=== PATIENT | female | born 1995 | race Caucasian/White ===

== ENCOUNTER 2016-10-01 08:47 | Inpatient (IN) | payer MEDICAID ==
[2016-10-01] MEDS ORDERED: ePHEDrine SULFATE IV PRN ×2 (10:23→11:21)
[2016-10-01] MEDS ORDERED: SUBLIMAZE IV PRN (10:23)
[2016-10-01] MEDS ORDERED: XYLOCAINE 2% INFILTRATI ONE (10:23)
[2016-10-01] MEDS ORDERED: BRETHINE IVP PRN (10:23)
[2016-10-01] MEDS ORDERED: ZOFRAN IV PRN (10:23)
[2016-10-01] MEDS ORDERED: BRETHINE SUB-Q PRN (10:23)
[2016-10-01] MEDS ORDERED: MINERAL OIL PO PRN (10:23)
--- NOTE | 2016-10-01 10:30 | History and Physical Report ---
History of Present Illness Date of examination: 10/01/16 (pt presents in active labor) Chief complaint: contractions History of present illness: EDC Confirmation: 09/28/2016 Gestational Age: 16 1/7 weeks Past History : 3 Term Births: 1 Premature Births: 0 Living Children: 1 Para: 1 Mult. Births: 0 Prev : 0 Prev. attempt? 0 Aborta: 1 Elect. Ab: 0 Spont. 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 of genital herpes: no Genetic History Congenital Heart Defect: Mom: no Dad: no Jyoti Disease: Mom: no Dad: no Thalassemia Mom: no Dad: no Neural Tube Defect Mom: no Dad: no Down's Syndrome Mom: no Dad: no Richard-Sachs Mom: no Dad: no Sickle Cell Disease/Trait Mom: no Dad: no Hemophilia Mom: no Dad: no Muscular Dystrophy Mom: no Dad: no Cystic Fibrosis Mom: no Dad: no [place] Chorea Mom: no Dad: no Mental Retardation Mom: no Dad: no Fragile X Mom: no Dad: no Other Genetic/Chromosomal Disorder Mom: no Dad: no Child w/other defect Mom: no Dad: no Enviromental Exposures Xray Exposure: no Medication, drug, or alcohol use since LMP: no Chemical/Other Exposure: no Exposure to Cat Liter: no Hx of Parvovirus (Fifth Disease): no Active Medications (reviewed today): None Current Allergies: No known allergies Laboratory Results Routine Urinalysis Protein: Negative Glucose: Negative Urine HCG: positive Review of Systems General Complains of fatigue. Denies fever, chills, sweats, anorexia, weakness, malaise, weight loss and sleep disorder. Complains of pelvic pain. Denies vaginal discharge, incontinence, dysuria, hematuria, urinary frequency, amenorrhea, menorrhagia, abnormal vaginal bleeding, genital sores, decreased libido, painful periods, painful sex, urinary urgency, hot flashes, vaginal dryness, vaginal itching and vaginal odor. CV Denies chest pains, palpitations, syncope, dyspnea on exertion, orthopnea, PND and peripheral edema. Resp Denies cough, dyspnea at rest, excessive sputum, hemoptysis, wheezing and pleurisy. GI Complains of nausea. Denies vomiting, diarrhea, constipation, change in bowel habits, abdominal pain, melena, hematochezia, jaundice, gas/bloating, indigestion/heartburn, dysphagia and odynophagia. Breast Complains of breast pain. Denies left breast lump, right breast lump, nipple discharge, bloody discharge from nipple, abnormal mammogram and breast enlargement. Psych Denies depression, anxiety, irritability and mood swings. PHYSICAL EXAM HEENT: normocephalic, no lesions or deformities Neck/Thyroid: supple, thyroid normal Skin no significant abnormal lesions or rashes Chest: respiratory effort normal, clear to auscultation Breasts: skin/areolae normal, no masses, no nipple discharge, no erythema/warmth /tenderness, and axillae normal. CV: regular, normal S1-S2, no murmur, no rub, no gallop Abdomen: Obese, normal bowel sounds, soft, nontender, no HSM Musculoskeletal: grossly normal ROM in joints, no joint tenderness or muscle weakness Neuro: no gross anomalities Extremities: no clubbing, cyanosis, or edema CHUTE BOSS Exams Vulva/Vagina: No lesions, normal BUS, normal rugae Cervix: No lesions; no cervical motion tenderness Uterus: Enlarged 16- 18 week size Adnexae: Unable to palpate due to uterine size Rectovaginal: exam defered Past History - Obstetrical History Expected Date of Delivery: 09/28/16 Actual Gestation: 40 Week(s) 3 Day(s) : 3 Para: 1 Hx # Term Pregnancies: 1 Spontaneous Abortions: 1 (D&C done) Number of Living Children: 1 Medications and Allergies Allergies Allergy/AdvReac Type Severity Reaction Status Date / Time No Known Allergies Allergy Unverified 01/15/14 23:42 Home Medications Medication Instructions Recorded Confirmed Last Taken Type No Known Home Medications [No 01/15/14 01/15/14 Unknown History Reported Home Medications] - Vital Signs Vital signs: Vital Signs Pulse BP 76 116/81 10/01/16 09:34 10/01/16 09:34 Temp Pulse Resp BP Pulse Ox 72 116/81 98 10/01/16 09:57 10/01/16 09:34 10/01/16 09:57 - Physical Exam Breasts: Positive: deferred Cardiovascular: Regular rate, Normal S1, Normal S2 Lungs: Positive: Normal air movement Abdomen: Positive: normal appearance, soft, normal bowel sounds. Negative: distention, tenderness Genitourinary (Female): Positive: normal external genitalia, normal perenium Vulva: both: normal Vagina: Positive: normal moisture. Negative: discharge Cervix: Negative: lesion, discharge Uterus: Positive: normal size, normal contour Adnexa: both: normal Anus/Rectum: Positive: normal perianal skin, heme negative. Negative: rectal mass, hemorrhoids Extremities: Positive: edema Deep Tendon Reflex Grade: Normal +2 - Obstetrical FHR: category 1 Uterine Contraction Monitor Mode: External Cervical Dilatation: 5 Cervical Effacement Percentage: 100 station: -1 Uterine Contraction Pattern: Irregular Uterine Contraction Intensity: Moderate Results All other labs normal. Laboratory Data-Patient Name: ISIDRO Davis SAMIA Test Date Result Blood Type 03/20/2016 A Rh 03/20/2016 positive Antibody Screen negative Rubella 03/20/2016 IMMUNE Serology (RPR) 08/25/2016 NR HBsAg 03/20/2016 negative Hemoglobin 06/16/2016 10.6 Hematocrit 06/16/2016 32.6 Platelets 03/20/2016 320 Chlamydia DNA 04/14/2016 Negative GC DNA/Culture 04/14/2016 Urine Culture Group B Strep cult negative PAP 03/20/2016 normal HIV 08/25/2016 AFP/Quad Screen Glucola Test 3hr GTT (Fasting) 1 hr 2 hr 3 hr [facility]-Patient Name:ISIDRO Davis SAMIA Test Date Result Varicella Ab Sickle Cell 03/20/2016 negative PPD Fibronectin Cystic Fibrosis Parvovirus TSH Free T4 Hepatitis C ALT AST Uric Acid Creatinine 24 hr Urine Protein IZABEL Assessment and Plan 21yo @ 40 weeks in active labor GBS negative Orders in EMR.
[2016-10-01] MEDS: LACTATED RINGERS 1,000 ML IV SCH ×2 (10:44→11:32)
[2016-10-01 10:51] LABS: Hematocrit 32.3 % (30.3-42.9); Hemoglobin 10.6 gm/dl (10.1-14.3); Mean Corpuscular HGB Conc 33 % (30-34); Mean Corpuscular Hemoglobin 26 pg (28-32); Mean Corpuscular Volume 79 fl (79-97); Platelet Count 261 K/mm3 (140-440); Red Blood Count 4.08 M/mm3 (3.65-5.03); White Blood Count 10.6 K/mm3 (4.5-11.0)
[2016-10-01] MEDS ORDERED: PITOCin/NS 30 UNIT/500ML 30 UNITS/500 ML BAG IV SCH (11:00)
[2016-10-01] MEDS ORDERED: PITOCin 20 UNIT in NACL 0.9% 1000 ML 998 ML IV SCH ×2 (11:00→15:00)
--- NOTE | 2016-10-01 11:20 | Anesthesia Consultation ---
Anesthesia Consult and Med Hx Date of service: 10/01/16 - Airway Anesthetic Teeth Evaluation: Good ROM Head & Neck: Adequate Mental/Hyoid Distance: Adequate - Pre-Operative Health Status ASA Pre-Surgery Classification: ASA2 Proposed Anesthetic Plan: Epidural, Spinal
[2016-10-01] MEDS ORDERED: NARCAN 2 MG/2 ML IV PRN (11:21)
--- NOTE | 2016-10-01 11:43 | Progress Note ---
Assessment and Plan Internals placed SVE 7,100,-1 Pt sitting up for epidural Anticipate delivery Subjective - Subjective Date of service: 10/01/16 (pt req epidural) Interval history: EDC Confirmation: 09/28/2016 Gestational Age: 16 1/7 weeks Past History : 3 Term Births: 1 Premature Births: 0 Living Children: 1 Para: 1 Mult. Births: 0 Prev : 0 Prev. attempt? 0 Aborta: 1 Elect. Ab: 0 Spont. 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 of genital herpes: no Genetic History Congenital Heart Defect: Mom: no Dad: no Jyoti Disease: Mom: no Dad: no Thalassemia Mom: no Dad: no Neural Tube Defect Mom: no Dad: no Down's Syndrome Mom: no Dad: no Richard-Sachs Mom: no Dad: no Sickle Cell Disease/Trait Mom: no Dad: no Hemophilia Mom: no Dad: no Muscular Dystrophy Mom: no Dad: no Cystic Fibrosis Mom: no Dad: no [place] Chorea Mom: no Dad: no Mental Retardation Mom: no Dad: no Fragile X Mom: no Dad: no Other Genetic/Chromosomal Disorder Mom: no Dad: no Child w/other defect Mom: no Dad: no Enviromental Exposures Xray Exposure: no Medication, drug, or alcohol use since LMP: no Chemical/Other Exposure: no Exposure to Cat Liter: no Hx of Parvovirus (Fifth Disease): no Active Medications (reviewed today): None Current Allergies: No known allergies Laboratory Results Routine Urinalysis Protein: Negative Glucose: Negative Urine HCG: positive Review of Systems General Complains of fatigue. Denies fever, chills, sweats, anorexia, weakness, malaise, weight loss and sleep disorder. Complains of pelvic pain. Denies vaginal discharge, incontinence, dysuria, hematuria, urinary frequency, amenorrhea, menorrhagia, abnormal vaginal bleeding, genital sores, decreased libido, painful periods, painful sex, urinary urgency, hot flashes, vaginal dryness, vaginal itching and vaginal odor. CV Denies chest pains, palpitations, syncope, dyspnea on exertion, orthopnea, PND and peripheral edema. Resp Denies cough, dyspnea at rest, excessive sputum, hemoptysis, wheezing and pleurisy. GI Complains of nausea. Denies vomiting, diarrhea, constipation, change in bowel habits, abdominal pain, melena, hematochezia, jaundice, gas/bloating, indigestion/heartburn, dysphagia and odynophagia. Breast Complains of breast pain. Denies left breast lump, right breast lump, nipple discharge, bloody discharge from nipple, abnormal mammogram and breast enlargement. Psych Denies depression, anxiety, irritability and mood swings. PHYSICAL EXAM HEENT: normocephalic, no lesions or deformities Neck/Thyroid: supple, thyroid normal Skin no significant abnormal lesions or rashes Chest: respiratory effort normal, clear to auscultation Breasts: skin/areolae normal, no masses, no nipple discharge, no erythema/warmth /tenderness, and axillae normal. 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 Vulva/Vagina: No lesions, normal BUS, normal rugae Cervix: No lesions; no cervical motion tenderness Uterus: Enlarged 16- 18 week size Adnexae: Unable to palpate due to uterine size Rectovaginal: exam defered Patient reports: movement normal Objective - Vital Signs Vital Signs: Vital Signs - 12hr 10/01/16 10/01/16 10/01/16 09:34 09:37 09:42 Pulse Rate 76 73 87 Blood Pressure 116/81 O2 Sat by Pulse 97 97 Oximetry 10/01/16 10/01/16 10/01/16 09:47 09:52 09:57 Pulse Rate 85 77 72 Blood Pressure O2 Sat by Pulse 97 97 98 Oximetry 10/01/16 10/01/16 10/01/16 10:25 10:30 10:35 Pulse Rate 79 74 76 Blood Pressure O2 Sat by Pulse 96 97 96 Oximetry 10/01/16 10/01/16 10/01/16 10:40 10:45 10:50 Pulse Rate 83 87 88 Blood Pressure O2 Sat by Pulse 95 96 96 Oximetry 10/01/16 10/01/16 10/01/16 10:55 11:00 11:05 Pulse Rate 72 80 74 Blood Pressure O2 Sat by Pulse 97 97 98 Oximetry 10/01/16 10/01/16 10/01/16 11:10 11:15 11:20 Pulse Rate 77 86 91 H Blood Pressure O2 Sat by Pulse 98 98 97 Oximetry 10/01/16 10/01/16 11:25 11:30 Pulse Rate 77 80 Blood Pressure O2 Sat by Pulse 96 96 Oximetry - Exam Breasts: deferred Cardiovascular: Regular rate Lungs: Normal air movement Abdomen: Present: normal appearance, soft. Absent: distention, tenderness Uterus: Present: normal FHR: auscultation normal, category 1 Uterine Contraction Monitor Mode: Internal Cervical Dilatation: 7 (ISE/IUPC placed) Cervical Effacement Percentage: 100 station: -1 Uterine Contraction Pattern: Regular Uterine Contraction Intensity: Moderate Extremities: edema Deep Tendon Reflex Grade: Normal +2 - Labs Labs: Abnormal Labs 10/01/16 10:15 MCH 26 L Laboratory Results - last 24 hr 10/01/16 10/01/16 10:15 10:15 WBC 10.6 RBC 4.08 Hgb 10.6 Hct 32.3 MCV 79 MCH 26 L MCHC 33 RDW 15.0 Plt Count 261 Blood Type A POSITIVE Antibody Screen Negative
[2016-10-01] MEDS ORDERED: PITOCin/NS 20 UNIT/1000ML DRIP 20,000 MILLIUNITS/1,000 ML BAG IV ONE (11:56)
[2016-10-01] MEDS ORDERED: fentaNYL-BUPIV 2 MCG/ML-0.125% 200 MCG/100 ML BAG EPIDURAL SCH (12:00)
--- NOTE | 2016-10-01 12:57 | Progress Note ---
Assessment and Plan OP presentation Pt left lateral with leg in stirrup Will do freq position changes. Pit @ 8mu Re-eval as needed. EFW 8 pounds Subjective - Subjective Date of service: 10/01/16 (epidural redose called for) Interval history: EDC Confirmation: 09/28/2016 Gestational Age: 16 1/7 weeks Past History : 3 Term Births: 1 Premature Births: 0 Living Children: 1 Para: 1 Mult. Births: 0 Prev : 0 Prev. attempt? 0 Aborta: 1 Elect. Ab: 0 Spont. 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 of genital herpes: no Genetic History Congenital Heart Defect: Mom: no Dad: no Jyoti Disease: Mom: no Dad: no Thalassemia Mom: no Dad: no Neural Tube Defect Mom: no Dad: no Down's Syndrome Mom: no Dad: no Richard-Sachs Mom: no Dad: no Sickle Cell Disease/Trait Mom: no Dad: no Hemophilia Mom: no Dad: no Muscular Dystrophy Mom: no Dad: no Cystic Fibrosis Mom: no Dad: no [place] Chorea Mom: no Dad: no Mental Retardation Mom: no Dad: no Fragile X Mom: no Dad: no Other Genetic/Chromosomal Disorder Mom: no Dad: no Child w/other defect Mom: no Dad: no Enviromental Exposures Xray Exposure: no Medication, drug, or alcohol use since LMP: no Chemical/Other Exposure: no Exposure to Cat Liter: no Hx of Parvovirus (Fifth Disease): no Active Medications (reviewed today): None Current Allergies: No known allergies Laboratory Results Routine Urinalysis Protein: Negative Glucose: Negative Urine HCG: positive Review of Systems General Complains of fatigue. Denies fever, chills, sweats, anorexia, weakness, malaise, weight loss and sleep disorder. Complains of pelvic pain. Denies vaginal discharge, incontinence, dysuria, hematuria, urinary frequency, amenorrhea, menorrhagia, abnormal vaginal bleeding, genital sores, decreased libido, painful periods, painful sex, urinary urgency, hot flashes, vaginal dryness, vaginal itching and vaginal odor. CV Denies chest pains, palpitations, syncope, dyspnea on exertion, orthopnea, PND and peripheral edema. Resp Denies cough, dyspnea at rest, excessive sputum, hemoptysis, wheezing and pleurisy. GI Complains of nausea. Denies vomiting, diarrhea, constipation, change in bowel habits, abdominal pain, melena, hematochezia, jaundice, gas/bloating, indigestion/heartburn, dysphagia and odynophagia. Breast Complains of breast pain. Denies left breast lump, right breast lump, nipple discharge, bloody discharge from nipple, abnormal mammogram and breast enlargement. Psych Denies depression, anxiety, irritability and mood swings. PHYSICAL EXAM HEENT: normocephalic, no lesions or deformities Neck/Thyroid: supple, thyroid normal Skin no significant abnormal lesions or rashes Chest: respiratory effort normal, clear to auscultation Breasts: skin/areolae normal, no masses, no nipple discharge, no erythema/warmth /tenderness, and axillae normal. 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 Vulva/Vagina: No lesions, normal BUS, normal rugae Cervix: No lesions; no cervical motion tenderness Uterus: Enlarged 16- 18 week size Adnexae: Unable to palpate due to uterine size Rectovaginal: exam defered Patient reports: movement normal Objective - Vital Signs Vital Signs: Vital Signs - 12hr 10/01/16 10/01/16 10/01/16 09:34 09:37 09:42 Pulse Rate 76 73 87 Blood Pressure 116/81 O2 Sat by Pulse 97 97 Oximetry 10/01/16 10/01/16 10/01/16 09:47 09:52 09:57 Pulse Rate 85 77 72 Blood Pressure O2 Sat by Pulse 97 97 98 Oximetry 10/01/16 10/01/16 10/01/16 10:25 10:30 10:35 Pulse Rate 79 74 76 Blood Pressure O2 Sat by Pulse 96 97 96 Oximetry 10/01/16 10/01/16 10/01/16 10:40 10:45 10:50 Pulse Rate 83 87 88 Blood Pressure O2 Sat by Pulse 95 96 96 Oximetry 10/01/16 10/01/16 10/01/16 10:55 11:00 11:05 Pulse Rate 72 80 74 Blood Pressure O2 Sat by Pulse 97 97 98 Oximetry 10/01/16 10/01/16 10/01/16 11:10 11:15 11:20 Pulse Rate 77 86 91 H Blood Pressure O2 Sat by Pulse 98 98 97 Oximetry 10/01/16 10/01/16 10/01/16 11:25 11:30 11:35 Pulse Rate 77 80 81 Blood Pressure O2 Sat by Pulse 96 96 98 Oximetry 10/01/16 10/01/16 10/01/16 11:40 11:43 11:45 Pulse Rate 97 H 81 73 Blood Pressure 109/62 111/60 O2 Sat by Pulse 98 97 Oximetry 10/01/16 10/01/16 10/01/16 11:47 11:50 11:51 Pulse Rate 87 73 69 Blood Pressure 117/60 99/57 106/57 O2 Sat by Pulse 97 Oximetry 10/01/16 10/01/16 10/01/16 11:53 11:55 11:56 Pulse Rate 72 67 74 Blood Pressure 109/58 140/58 O2 Sat by Pulse 96 Oximetry 10/01/16 10/01/16 10/01/16 11:58 11:59 12:00 Pulse Rate 77 86 83 Blood Pressure 112/56 107/55 O2 Sat by Pulse 96 Oximetry 10/01/16 10/01/16 10/01/16 12:01 12:03 12:05 Pulse Rate 78 81 90 Blood Pressure 112/55 110/57 111/56 O2 Sat by Pulse 96 Oximetry 10/01/16 10/01/16 10/01/16 12:07 12:09 12:10 Pulse Rate 88 82 75 Blood Pressure 111/55 109/55 O2 Sat by Pulse 97 Oximetry 10/01/16 10/01/16 10/01/16 12:11 12:13 12:15 Pulse Rate 80 81 78 Blood Pressure 108/55 110/56 O2 Sat by Pulse 96 Oximetry 10/01/16 10/01/16 10/01/16 12:20 12:25 12:28 Pulse Rate 81 69 77 Blood Pressure 114/56 O2 Sat by Pulse 97 97 Oximetry 10/01/16 10/01/16 10/01/16 12:30 12:35 12:40 Pulse Rate 65 78 81 Blood Pressure O2 Sat by Pulse 97 96 97 Oximetry 10/01/16 10/01/16 10/01/16 12:44 12:45 12:51 Pulse Rate 69 73 71 Blood Pressure 121/63 O2 Sat by Pulse 97 96 Oximetry - Exam Breasts: deferred Cardiovascular: Regular rate Lungs: Normal air movement Abdomen: Present: normal appearance, soft. Absent: distention, tenderness Uterus: Present: normal FHR: auscultation normal Uterine Contraction Monitor Mode: Internal Cervical Dilatation: 9.5 (OP) Cervical Effacement Percentage: 100 station: -1 Uterine Contraction Pattern: Regular Uterine Contraction Intensity: Moderate Extremities: edema Deep Tendon Reflex Grade: Normal +2 - Labs Labs: Abnormal Labs 10/01/16 10:15 MCH 26 L Laboratory Results - last 24 hr 10/01/16 10/01/16 10/01/16 10:15 10:15 10:15 WBC 10.6 RBC 4.08 Hgb 10.6 Hct 32.3 MCV 79 MCH 26 L MCHC 33 RDW 15.0 Plt Count 261 RPR Nonreactive Blood Type A POSITIVE Antibody Screen Negative
[2016-10-01] MEDS ORDERED: XYLOCAINE MPF 2% ONE (12:58)
[2016-10-01] MEDS ORDERED: NACL 0.9% 1000 ML 1,000 ML VG SCH (14:00)
[2016-10-01] MEDS ORDERED: DERMOPLAST TP PRN (14:17)
[2016-10-01] MEDS ORDERED: BENADRYL PO PRN (14:17)
[2016-10-01] MEDS ORDERED: PHENERGAN PO PRN (14:17)
[2016-10-01] MEDS ORDERED: MILK OF MAGNESIA PO PRN (14:17)
[2016-10-01] MEDS ORDERED: LANSINOH TP PRN (14:17)
[2016-10-01] MEDS ORDERED: TUCKS PAD TP PRN (14:17)
[2016-10-01] MEDS ORDERED: DULCOLAX PR PRN (14:17)
[2016-10-01] MEDS ORDERED: TYLENOL PO PRN (14:17)
[2016-10-01] MEDS ORDERED: NORCO 5/325 PO PRN (14:17)
--- NOTE | 2016-10-01 14:30 | Procedure Note ---
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 Pit IVFs 8/9, EBL 300, Wgt 8-3 Mom and baby remain LDR stable. - Infant A at 1 minute: 8 at 5 minutes: 9 Gender: Female (wgt 8-3)
[2016-10-01] MEDS ORDERED: SODIUM CHLORIDE FLUSH SYRINGE 10 ML IV NR (15:00)
[2016-10-01] MEDS ORDERED: PITOCin/NS 20 UNIT/1000ML DRIP 20,000 MILLIUNITS/1,000 ML BAG IV SCH (15:00)
[2016-10-01] MEDS: MOTRIN PO SCH ×2 (17:10→22:20)
[2016-10-01] MEDS: COLACE PO SCH (22:21)
[2016-10-02] MEDS: FEOSOL PO SCH ×2 (00:10→10:36)
[2016-10-02 02:50] LABS: Hematocrit 31.1 % (30.3-42.9); Hemoglobin 10.3 gm/dl (10.1-14.3)
[2016-10-02] MEDS: MOTRIN PO SCH ×3 (05:54→18:20)
[2016-10-02] MEDS ORDERED: BOOSTRIX IM ONE ×2 (06:00→14:17)
--- NOTE | 2016-10-02 07:43 | Progress Note ---
Assessment and Plan Patient doing well, no complaints. desires d/c home today. Shyam vázquez, VSSAF , H&H stable 10.3/31.1. Plan for d/c home and routine 4-6 week f/u in office. - Patient Problems (1) Spontaneous vaginal delivery Current Visit: Yes Status: Acute Subjective - Subjective Date of service: 10/02/16 Principal diagnosis: day #1 s/p Patient reports: appetite normal, voiding normally, pain well controlled, ambulating normally, no dizzy ambulation, no nauseated [place]: doing well, nursing well (breast and bottle feeding) Objective - Vital Signs Latest vital signs: Vital Signs Temp Pulse Pulse Resp BP BP Pulse Ox 10/02/16 00:00 98.0 F 70 20 116/57 10/01/16 15:45 98.4 F 76 20 102/62 10/01/16 15:30 98.1 F 18 10/01/16 15:17 70 99 10/01/16 15:15 98 F 18 10/01/16 15:13 70 115/55 10/01/16 15:12 69 99 10/01/16 15:07 71 99 10/01/16 15:02 71 98 10/01/16 14:58 69 114/59 10/01/16 14:57 70 99 10/01/16 14:52 71 99 10/01/16 14:47 81 98 10/01/16 14:43 72 113/59 10/01/16 14:42 70 98 10/01/16 14:37 74 99 10/01/16 14:32 85 97 10/01/16 14:29 80 115/58 10/01/16 14:19 97.4 F L 18 10/01/16 13:56 115 H 99 10/01/16 13:51 85 100 10/01/16 13:46 94 H 100 10/01/16 13:45 105 H 124/94 10/01/16 13:41 90 100 10/01/16 13:36 76 100 10/01/16 13:31 76 100 10/01/16 13:29 75 113/59 10/01/16 13:26 78 99 10/01/16 13:21 80 99 10/01/16 13:16 76 98 10/01/16 13:13 81 105/60 10/01/16 13:11 78 98 10/01/16 13:09 75 100/57 10/01/16 13:06 75 96 10/01/16 13:05 75 103/54 10/01/16 13:01 85 96 10/01/16 12:59 75 103/51 10/01/16 12:56 86 96 10/01/16 12:51 71 96 10/01/16 12:45 73 97 10/01/16 12:44 69 121/63 10/01/16 12:40 81 97 10/01/16 12:35 78 96 10/01/16 12:30 65 97 10/01/16 12:28 77 114/56 10/01/16 12:25 69 97 10/01/16 12:20 81 97 10/01/16 12:15 78 96 10/01/16 12:13 81 110/56 10/01/16 12:11 80 108/55 10/01/16 12:10 75 97 10/01/16 12:09 82 109/55 10/01/16 12:07 88 111/55 10/01/16 12:05 90 111/56 96 10/01/16 12:03 81 110/57 10/01/16 12:01 78 112/55 10/01/16 12:00 83 96 10/01/16 11:59 86 107/55 10/01/16 11:58 77 112/56 10/01/16 11:56 74 140/58 10/01/16 11:55 67 96 10/01/16 11:53 72 109/58 10/01/16 11:51 69 106/57 10/01/16 11:50 73 99/57 97 10/01/16 11:47 87 117/60 10/01/16 11:45 73 111/60 97 10/01/16 11:43 81 109/62 10/01/16 11:40 97 H 98 10/01/16 11:35 81 98 10/01/16 11:30 80 96 10/01/16 11:25 98.2 F 77 18 96 10/01/16 11:20 91 H 97 10/01/16 11:15 86 98 10/01/16 11:10 77 98 10/01/16 11:05 74 98 10/01/16 11:00 80 97 10/01/16 10:55 72 97 10/01/16 10:50 88 96 10/01/16 10:45 87 96 10/01/16 10:40 83 95 10/01/16 10:35 76 96 10/01/16 10:30 74 97 10/01/16 10:25 79 96 10/01/16 09:57 72 98 10/01/16 09:52 77 97 10/01/16 09:47 85 97 10/01/16 09:42 87 97 10/01/16 09:37 73 97 10/01/16 09:34 76 116/81 Intake and Output 10/01/16 10/02/16 10/02/16 22:59 06:59 14:59 Intake Total 480 Output Total 1490 Balance -1010 Intake: Oral 480 Output: Urine 1490 Indwelling Catheter 390 Void 1100 Other: Total, Intake Amount 240 Total, Output Amount 600 # Voids Void 1 - Exam Breasts: Present: normal Cardiovascular: Present: Regular rate Lungs: Present: Clear to auscultation, Normal air movement Abdomen: Present: normal appearance, soft Vulva: both: normal Uterus: Present: normal, firm, fundal height at umbilicus Extremities: Present: normal - Labs Labs: Abnormal lab results 10/01/16 Range/Units 10:15 MCH 26 L (28-32) pg
--- NOTE | 2016-10-02 07:45 | Discharge Summary ---
Providers - Providers Date of Admission: 10/01/16 11:10 Date of discharge: 10/02/16 (desires d/c home) Attending physician: FUNMI FIELDS Primary care physician: FUNMI FIELDS Hospitalization Reason for admission: active labor Delivery: Episiotomy: none Laceration: none Other procedures: none complications: none Discharge diagnosis: IUP at term delivered [place] baby: female Hospital course: uncomplicated vaginal delivery Condition at discharge: Good Disposition: DISCHARGED TO HOME OR SELFCARE - Discharge Diagnoses (1) Spontaneous vaginal delivery Status: Acute Plan - Provider Discharge Summary Activity: routine, no sex for 6 weeks, no heavy lifting 4 weeks, no strenuous exercise Diet: routine Instructions: routine Additional instructions: [] Smoking cessation referral if applicable(refer to patient education folder for contact #) [] Refer to [facility]'s [facility] Booklet Call your doctor immediately for: * Fever > 100.5 * Heavy vaginal bleeding ( >1 pad per hour) * Severe persistent headache * Shortness of breath * Reddened, hot, painful area to leg or breast * Drainage or odor from incision. * Keep incision clean and dry at all times and follow doctor's instructions regarding bathing/showering - Follow up plan Follow up: FUNMI FIELDS MD [Primary Care Provider] - 6 Weeks (Congratulations!! Please call [phone] to schedule your visit in 6 weeks. Please call for any questions or concerns. )
[2016-10-02] MEDS: PRENATAL VITAMIN PO SCH (10:36)
--- NOTE | 2016-10-02 13:02 | Progress Note ---
Subjective Date of service: 10/02/16 Principal diagnosis: day #1 s/p Interval history: 1st day after normal vaginal delivery Patient is in the bed, comfortable. Pain is well controlled with pain meds. Ambulated well. No residual neurological deficit. No anesthesia complications Objective - Constitutional Vitals: Vital Signs - 12hr 10/02/16 08:41 Temperature 98.4 F Pulse Rate [ 66 Right] Respiratory 20 Rate Blood Pressure 118/56 [Right Arm] - Labs CBC & Chem 7: 10/02/16 01:26
[2016-10-02] MEDS ORDERED: M-M-R II VACCINE SUB-Q ONE (14:17)
[2016-10-03] MEDS: MOTRIN PO SCH ×3 (00:08→12:49)
[2016-10-03] MEDS: FEOSOL PO SCH ×2 (00:09→10:21)
[2016-10-03] MEDS: COLACE PO SCH ×2 (00:10→10:21)
[2016-10-03] MEDS: PRENATAL VITAMIN PO SCH (10:21)
[2016-10-03 15:40] VITALS: BP 117/64
== END 2016-10-03 16:09 | disposition home or self-care (01) | DRG 775 ==
LOC: TRG 08:47 → LD 11:10 → OB 16:23
PROVIDERS: ADMIT Obstetrics & Gynecology; ATTEND Obstetrics & Gynecology
PROC: 10E0XZZ Delivery of Products of Conception, External Approach (ICD-10-PCS; principal; 2016-10-01)
PROC: 3E0S3CZ (ICD-10-PCS; 2016-10-01)
PROC: 00HU33Z Insertion of Infusion Device into Spinal Canal, Percutaneous Approach (ICD-10-PCS; 2016-10-01)
DX: O76 Abnormality in fetal heart rate and rhythm complicating labor and delivery (principal); Z3A.40 40 weeks gestation of pregnancy; Z37.0 Single live birth
CPT/HCPCS: 36415; 85014; 85018; 85027; 86592; 86850; 86900; 86901; 90471; 90715; 99211; A6250; G0463; J2590; J7120

== ENCOUNTER 2018-07-15 08:05 | Inpatient (IN) | payer MEDICAID ==
--- NOTE | 2018-07-15 08:21 | History and Physical Report ---
History of Present Illness Date of examination: 07/15/18 Date of admission: 07/15/18 08:05 Chief complaint: labor- 8cms upon arrival History of present illness: EDC Calculations LMP: 07/18/2018 Past History : 4 Term Births: 1 Premature Births: 0 Living Children: 2 Para: 2 Mult. Births: 0 Prev : 0 Prev. attempt? 0 Aborta: 1 Elect. Ab: 0 Spont. Ab: 1 Ectopics: 0 # 1 Delivery date: 02/19/2012 Weeks Gestation: 40 Delivery type: vac Hours of labor: 12 Anesthesia type: epidural Delivery location: [facility] Infant Sex: Female weight: 7-9 Name: Griselda # 2 Delivery date: 07/04/2015 Weeks Gestation: 10 Delivery type: SAB Delivery location: [facility] Comments: Blighted Ovum D&C done # 3 Delivery date: 10/01/2016 Weeks Gestation: 40 Delivery type: Hours of labor: 14 Anesthesia type: epidural Delivery location: [facility] Infant Sex: Female weight: 8-2 Name: Megan Past Medical History: Reviewed history from 04/14/2016 and no changes required: Negative Past Medical History Past Surgical History: Reviewed history from 04/14/2016 and no changes required: D&C: (2014) Family History Summary: Reviewed history and no changes required: 01/12/2018 Other family member - Has No Family History of Breast Cancer - Entered On: 04/14/2016 Other family member - Has No Family History of Colon Cancer - Entered On: 04/14 Other family member - Has No Family History of Ovarvian Cancer - Entered On: 04/14/2016 Risk Factors: Smoked Tobacco Use: Never smoker Drug use: no Alcohol use: no Dietary Counseling: pn yes Past Medical History Abnormal PAP: negative Uterine Anomaly: negative 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 of genital herpes: no Genetic History Congenital Heart Defect: Mom: no Dad: no Jyoti Disease: Mom: no Dad: no Thalassemia Mom: no Dad: no Neural Tube Defect Mom: no Dad: no Down's Syndrome Mom: no Dad: no Richard-Sachs Mom: no Dad: no Sickle Cell Disease/Trait Mom: no Dad: no Hemophilia Mom: no Dad: no Muscular Dystrophy Mom: no Dad: no Cystic Fibrosis Mom: no Dad: no Rosemary Chorea Mom: no Dad: no Mental Retardation Mom: no Dad: no Fragile X Mom: no Dad: no Other Genetic/Chromosomal Disorder Mom: no Dad: no Child w/other defect Mom: no Dad: no Enviromental Exposures Xray Exposure: no Medication, drug, or alcohol use since LMP: no Active Medications (reviewed today): PLUS/IRON 27-1 MG ORAL TABLET ( VIT-FE FUMARATE-FA) 1 po q day as directed FORMULA 27-1 MG ORAL TABLET ( VIT-FE FUMARATE-FA) 1 po q day as directed VITAMIN TABLET ( VIT-FE FUMARATE-FA TABS) 1 tab q d Current Allergies (reviewed today): No known allergies Past History Past Medical History: other (see HPI) Past Surgical History: other (see HPI) [employer] History: other (see HPI) - Obstetrical History Expected Date of Delivery: 07/18/18 Actual Gestation: 39 Week(s) 4 Day(s) : 4 Para: 2 Hx # Term Pregnancies: 2 Spontaneous Abortions: 1 Number of Living Children: 2 Medications and Allergies Allergies Allergy/AdvReac Type Severity Reaction Status Date / Time No Known Allergies Allergy Verified 10/01/16 10:27 Home Medications Medication Instructions Recorded Confirmed Last Taken Type Pnv 29-1 Tablet 1 tab PO DAILY 10/02/16 10/02/16 Unknown History Review of Systems All systems: negative - Physical Exam Breasts: Positive: normal Cardiovascular: Regular rate Lungs: Positive: Clear to auscultation, Normal air movement Abdomen: Positive: normal appearance, soft Genitourinary (Female): Positive: normal external genitalia, normal perenium Vulva: both: normal Vagina: Positive: normal moisture Uterus: Positive: normal size Anus/Rectum: Positive: normal perianal skin Extremities: Positive: normal - Obstetrical FHR: category 1 Uterine Contraction Monitor Mode: External Cervical Dilatation: 8.5 (BBOW) Cervical Effacement Percentage: 100 Results All other labs normal. Assessment and Plan patient presents for active labor, admission orders in EMR. Anticipate . GBS NEG - Patient Problems (1) 39 weeks gestation of Current Visit: Yes Status: Acute (2) Active labor Current Visit: No Status: Acute
[2018-07-15] MEDS ORDERED: ZOFRAN IV PRN ×2 (08:30→09:53)
[2018-07-15] MEDS ORDERED: BRETHINE SUB-Q PRN (08:30)
[2018-07-15] MEDS ORDERED: XYLOCAINE 2% INFILTRATI NR (08:30)
[2018-07-15] MEDS ORDERED: SUBLIMAZE IV PRN (08:30)
[2018-07-15 08:38] LABS: Hematocrit 36.6 % (30.3-42.9); Hemoglobin 11.8 gm/dl (10.1-14.3); Mean Corpuscular HGB Conc 32 % (30-34); Mean Corpuscular Volume 82 fl (79-97); Platelet Count 277 K/mm3 (140-440); Red Blood Count 4.46 M/mm3 (3.65-5.03)
[2018-07-15] MEDS ORDERED: PITOCin/NS 20 UNIT/1000ML DRIP 20 UNITS/1,000 ML BAG IV SCH ×2 (09:00→10:00)
[2018-07-15] MEDS ORDERED: MINERAL OIL PO PRN (09:00)
[2018-07-15] MEDS ORDERED: PITOCin/NS 30 UNIT/500ML 30 UNITS/500 ML BAG IV SCH (09:00)
[2018-07-15] MEDS ORDERED: LACTATED RINGERS 1,000 ML IV SCH (09:00)
--- NOTE | 2018-07-15 09:07 | Procedure Note ---
OB Delivery Note - Delivery Date of Delivery: 07/15/18 (, girl. 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 Placed skin to skin. Cord clamped and cut once pulsation subsided. cord blood collected. placenta delivered intact and complete. no laceration to repair. EBL 300. fundus firm. apgars 8/9. mother and infant remain LDR, stable. - Infant A at 1 minute: 8 (4106 grams, 9#1) at 5 minutes: 9 Infant Gender: Female
[2018-07-15] MEDS ORDERED: BENADRYL PO PRN (09:53)
[2018-07-15] MEDS ORDERED: PHENERGAN PO PRN (09:53)
[2018-07-15] MEDS ORDERED: TUCKS PAD TP PRN (09:53)
[2018-07-15] MEDS ORDERED: LANSINOH TP PRN (09:53)
[2018-07-15] MEDS ORDERED: DULCOLAX PR PRN (09:53)
[2018-07-15] MEDS ORDERED: TYLENOL PO PRN (09:53)
[2018-07-15] MEDS ORDERED: MILK OF MAGNESIA PO PRN (09:53)
[2018-07-15] MEDS ORDERED: PRENATAL VITAMIN PO SCH (10:00)
[2018-07-15] MEDS ORDERED: SODIUM CHLORIDE FLUSH SYRINGE 10 ML IV NR (10:00)
[2018-07-15] MEDS: IBUPROFEN PO SCH ×3 (10:25→23:35)
[2018-07-15 21:07] LABS: Hemoglobin 10.1 gm/dl (10.1-14.3)
[2018-07-16] MEDS: IBUPROFEN PO SCH ×3 (04:00→11:10)
[2018-07-16] MEDS ORDERED: BOOSTRIX IM ONE ×2 (06:00→09:14)
[2018-07-16 08:44] VITALS: BP 105/57
--- NOTE | 2018-07-16 13:44 | Progress Note ---
Assessment and Plan - Patient Problems (1) Spontaneous vaginal delivery Current Visit: Yes Status: Acute Plan to address problem: day #1. Patient without nausea vomiting. Patient tolerating diet well Patient without fever. Infant is as noted above. Will continue routine care. Patient's hematocrit is 30%. Patient's desires discharge tomorrow due to continued observation of her infant Subjective - Subjective Date of service: 07/16/18 Principal diagnosis: day 1 Patient reports: appetite normal, voiding normally, pain well controlled, flatus, ambulating normally : doing well, other (been observed from glucose control) Objective - Vital Signs Latest vital signs: Vital Signs Temp Pulse Resp BP BP Pulse Ox 07/16/18 07:53 98.2 F 63 18 105/57 07/16/18 02:05 98.1 F 69 16 109/51 98 07/15/18 21:32 98.5 F 76 18 110/61 97 07/15/18 15:47 98.8 F 77 18 117/47 97 Intake and Output 07/15/18 07/16/18 07/16/18 22:59 06:59 14:59 Intake Total 360 Output Total 1075 Balance -1075 360 Intake: Oral 360 Output: Urine 1075 Void 1075 Other: Total, Intake Amount 360 Total, Output Amount 200 # Voids Void 1 - Exam Breasts: Present: deferred Cardiovascular: Present: Regular rate Lungs: Present: Normal air movement Abdomen: Present: normal appearance, soft, normal bowel sounds Uterus: Present: normal, firm, fundal height at umbilicus Extremities: Present: edema - Labs Labs: Abnormal lab results 07/15/18 Range/Units 20:55 Hct 30.0 L D (30.3-42.9) %
--- NOTE | 2018-07-16 15:03 | Event Note ---
Date: 07/16/18 Patient desires discharge infant has now been discharged by peds. Patient desires OCP Patient to make a 6 week poatpartum appointment.
== END 2018-07-16 16:10 | disposition home or self-care (01) | DRG 775 ==
LOC: LD 08:05 → OB 10:50
PROVIDERS: ADMIT Obstetrics & Gynecology; ATTEND Obstetrics & Gynecology
PROC: 10907ZC Drainage of Amniotic Fluid, Therapeutic from Products of Conception, Via Natural or Artificial Opening (ICD-10-PCS; principal; 2018-07-15)
PROC: 10E0XZZ Delivery of Products of Conception, External Approach (ICD-10-PCS; 2018-07-15)
PROC: 3E0234Z Introduction of Serum, Toxoid and Vaccine into Muscle, Percutaneous Approach (ICD-10-PCS; 2018-07-16)
DX: O62.3 Precipitate labor (principal); Z37.0 Single live birth; Z3A.39 39 weeks gestation of pregnancy; Z23 Encounter for immunization
CPT/HCPCS: 36415; 85014; 85018; 85027; 86592; 86850; 86900; 86901; 90471; 90715; G0378; J2590